=== PATIENT | female | born 1970 | race Caucasian/White ===

== ENCOUNTER 2019-12-31 10:02 | Emergency (ER) | payer BC ==
[~2019-12-31] VITALS: Ht 172.7 cm; Wt 131.8 kg
[2019-12-31 10:04] VITALS: BP 158/99
[2019-12-31] MEDS ORDERED: DIPH25TA62 PO (10:38)
[2019-12-31] MEDS ORDERED: CEPH250T PO (10:38)
[2019-12-31] MEDS ORDERED: PRED20TA PO (10:38)
== END 2019-12-31 10:49 | disposition home or self-care (01) ==
LOC: ER 10:03
DX: S40.861A Insect bite (nonvenomous) of right upper arm, initial encounter (principal); R60.9 Edema, unspecified; M79.621 Pain in right upper arm; Z88.2 Allergy status to sulfonamides; Z79.2 Long term (current) use of antibiotics; Z79.899 Other long term (current) drug therapy; W57.XXXA Bitten or stung by nonvenomous insect and other nonvenomous arthropods, initial encounter; Y93.89 Activity, other specified; Y92.89 Other specified places as the place of occurrence of the external cause; Y99.8 Other external cause status
CPT/HCPCS: 99283